=== PATIENT | female | born 1940 | race African-American/Black ===

== ENCOUNTER 2020-09-23 14:20 | Inpatient (IN) | payer OTHER ==
[~2020-09-23] VITALS: Ht 167.6 cm; Wt 71.2 kg
--- NOTE | 2020-09-23 14:20 | NUR ---
[facility] 82 [facility] C/O LOW 02 SAT AT 76%, PT IS AAOX2, NOTED RESPIRATORY DISTRESS, HOOKED TO 02 AT 15LPM VIA NB, HOOKED TO MEN'S SWIM COACH, KEPT RESTED AND COMFORTABLE. WILL CONTINUE TO MONITOR.
--- NOTE | 2020-09-23 14:36 | NUR ---
SEEN AND EXAMINED BY .
--- NOTE | 2020-09-23 14:40 | NUR ---
IV LINE ESTABLISHED BLOOD DRAWN AND SENT TO LAB.
[2020-09-23 15:03] LABS: BASOPHILS % (AUTO) 0.1 % (0.0-2.0); EOSINOPHILS % (AUTO) 0.1 % (0.0-6.0); HEMATOCRIT 30 % (33-45); HEMOGLOBIN 9.8 g/dL (11.5-14.8); LYMPHOCYTES # (AUTO) 0.4 /CMM (0.8-4.8); LYMPHOCYTES % (AUTO) 9.6 % (20.0-44.0); MEAN CORPUSCULAR HGB CONC 32 g/dl (31.0-36.0); MEAN CORPUSCULAR VOLUME 89 fL (82-100); MONOCYTES # (AUTO) 0.4 /CMM (0.1-1.30); MONOCYTES % (AUTO) 9.6 % (2.0-12.0); NEUTROPHILS # (AUTO) 3.8 /CMM (1.8-8.9); NEUTROPHILS % (AUTO) 80.6 % (43.0-81.0); PLATELET COUNT (AUTO) 134 /CMM (150-450); RED BLOOD CELL COUNT(AUTO) 3.41 MIL/uL (4.0-5.2); WHITE BLOOD COUNT (AUTO) 4.7 K/uL (4.3-11.0)
--- NOTE | 2020-09-23 15:10 | NUR ---
covid swab and urine collected. sent to lab
[2020-09-23 15:18] LABS: ALANINE AMINOTRANSFERASE 37 U/L (12-78); ALBUMIN 2.7 g/dL (3.4-5.0); ALKALINE PHOSPHATASE 65 U/L (46-116); ASPARTATE AMINOTRANSFERASE 193 U/L (15-37); BILIRUBIN,DIRECT 0.1 mg/dL (0.0-0.2); BILIRUBIN,TOTAL 0.5 mg/dL (0.2-1.0); CALCIUM, SERUM 8.3 mg/dL (8.5-10.1); CARBON DIOXIDE 27 mmol/L (21-32); CHLORIDE 107 mmol/L (98-107); GLUCOSE 150 mg/dL (74-106); POTASSIUM 3.5 mmol/L (3.5-5.1); SODIUM SERUM 142 mmol/L (136-145); TOTAL PROTEIN, SERUM 6.4 g/dL (6.4-8.2); UREA NITROGEN, BLOOD 14 mg/dL (7-18)
--- NOTE | 2020-09-23 15:26 | NUR ---
LAB CALLED LACTIC ACID IS 2.3
[2020-09-23] MEDS ORDERED: VANCOMYCIN 1 GM in IV D5W 250 ML IV ONE (15:30)
[2020-09-23] MEDS ORDERED: DEXAMETHASONE SOD PHOSPHATE 10 MG/ML VIAL IV ONE (15:30)
[2020-09-23] MEDS ORDERED: CEFEPIME 1 GM in IV D5W 50 ML IV ONE (15:30)
[2020-09-23] MEDS ORDERED: DEXAMETHASONE SOD PHOSPHATE 10 MG/ML VIAL ONE (15:51)
[2020-09-23 16:02] LABS: ABG BASE EXCESS 0.4 mmol/L; ABG OXYGEN SATURATION 98.1 % (92.0-98.5); ABG PCO2 36.9 mmHg (35.0-45.0); ABG PH 7.439 (7.350-7.450); ABG PO2 118.1 mmHg (75.0-100.0); COHb 0.6 % (0.5-1.5); MetHb 0.1 % (0.0-1.5); O2Hb 97.4 % (94.0-97.0); SITE, ABG Right Radial; VENT MODE, BG NRB 15L
[2020-09-23 16:11] LABS: D-DIMER 0.62 mg/L(FEU (0.17-0.50)
[2020-09-23 16:15] LABS: BILIRUBIN,URINE NEGATIVE (NEGATIVE); COLOR,URINE YELLOW (YELLOW); PROTEIN,URINE 2+ mg/dl (NEGATIVE); UGLUCOSE NEGATIVE (NEGATIVE)
[2020-09-23 16:16] LABS: LEUKOCYTE ESTERASE ,URINE NEGATIVE (NEGATIVE); NITRITE, URINE NEGATIVE (NEGATIVE)
[2020-09-23] MEDS ORDERED: IV NS 0.9% 1,897.6 ML IV ONE (16:30)
--- NOTE | 2020-09-23 16:38 | NUR ---
received a call from the lab regarding covid 19 reuslt "positive".
--- NOTE | 2020-09-23 16:38 | NUR ---
CALLED [facility] [phone] WILL CALL US BACK.
[2020-09-23 16:58] LABS: BACTERIA,URINE Few /HPF (None Seen); COARSE GRANULAR CASTS,URINE Few /LPF (None Seen); RBC,URINE 0-2 /HPF (0-2); SQUAMOUS EPITHELIAL CELL,UR Few /HPF (None Seen); WBC,URINE 0-2 /HPF (0-3)
[2020-09-23] MEDS ORDERED: ESCI10TA PO (17:30)
[2020-09-23] MEDS ORDERED: ATOR40TA PO (17:30)
[2020-09-23] MEDS ORDERED: LISI1TAB29 PO (17:30)
[2020-09-23] MEDS ORDERED: TRIA80OI TP (17:30)
--- NOTE | 2020-09-23 17:30 | NUR ---
pt placed on hiflow o2 per orders
[2020-09-23 17:52] LABS: CREATINE KINASE, TOTAL 251 U/L (26-192); FERRITIN 136 ng/mL (8-388)
--- NOTE | 2020-09-23 18:14 | NUR ---
RT PA02 ON BLOOD GAS GRREATER THAN 100, ON NRB, PT ON RESP DISTRESS REMOVING NRB PLACED ON VAPO HIGH FLOW WITHOUT COMPRESSOR CANNOT TITRATED FI02 Addendum: 09/23/20 at 1816 by CABRERA LOUIS RT Amended: Links added.
--- NOTE | 2020-09-23 18:28 | NUR ---
JACK FROM [facility] UPDATED WITH INPATIENT ORDERS
[2020-09-23] MEDS ORDERED: MAG HYDROX/AL HYDROX/SIMETH 30 ML UDC PO PRN (18:30)
[2020-09-23] MEDS ORDERED: ZOLPIDEM TARTRATE 5 MG TABLET PO PRN (18:30)
[2020-09-23] MEDS ORDERED: ACETAMINOPHEN 325 MG TABLET PO PRN (18:30)
[2020-09-23] MEDS ORDERED: Z GUARD REMEDY 2 OZ OINT TP PRN (18:30)
[2020-09-23] MEDS ORDERED: ONDANSETRON HCL/PF 4 MG/2 ML VIAL IVP PRN (18:30)
[2020-09-23] MEDS ORDERED: HYDROCODONE/APAP 5/325MG TABLET PO PRN (18:30)
[2020-09-23] MEDS ORDERED: MAGNESIUM HYDROXIDE 30 ML UDC PO PRN (18:30)
[2020-09-23 18:32] LABS: C-REACTIVE PROTEIN 22.6 mg/dL (0.0-0.9)
--- NOTE | 2020-09-23 18:39 | NUR ---
rd suh (son) [phone]
[2020-09-23] MEDS: APIXABAN 5 MG TABLET PO SCH (19:06)
[2020-09-23] MEDS ORDERED: REMDESIVIR (CHARGED) 200 MG, *LOADING DOSE 1 EA in IV NS 0.9% 210 ML IV ONE (20:00)
[2020-09-23] MEDS: CEFTRIAXONE 1 G in IV D5W 50 ML IV SCH (20:19)
--- NOTE | 2020-09-23 20:38 | NUR ---
tele bed 200
[2020-09-23 21:03] VITALS: BP_SYST 142; BP_SYST 168; BP_DIAS 68; BP_DIAS 82
--- NOTE | 2020-09-23 21:04 | NUR ---
PT ARRIVED FROM ER, AWAKE, A/O X2, WITH PERIODS OF CONFUSION. NO S/S OF DISTRESS NOTED. ON HIGH FLOW O2 AT40L AND 100% FIO2 SATING 95%. NO COMPLAIN OF PAIN. CALL LIGHT WITHIN REACH. BED ALARM ON. BED IN LOWEST AND LOCKED POSITION. HOB ELEVATED.
--- NOTE | 2020-09-23 21:12 | NUR ---
pt transported to 2nd floor
[2020-09-23 21:40] VITALS: BP 168/68
[2020-09-23] MEDS: DOXYCYCLINE HYCLATE (100 MG) 100 MG TABLET PO SCH (22:19)
[2020-09-24] VITALS: BP 142/82
--- NOTE | 2020-09-24 03:12 | NUR ---
airplane patrol pilot notes Went to Nursing Bankruptcy Law Specialist Coni to put Pt's belonging in the safe. Pt's belonging is in the safe. Primary nurse Joanna is informed and notified. pt's belonging tag is in pt's chart.
--- NOTE | 2020-09-24 03:30 | NUR ---
PT PULLED HER IV OUT. REINSERTED BY AURORA KOVACS ON THE RIGHT WRIST G22.
[2020-09-24 04:00] VITALS: BP 158/99
[2020-09-24 06:45] LABS: BASOPHILS % (AUTO) 0.2 % (0.0-2.0); HEMATOCRIT 32 % (33-45); HEMOGLOBIN 10.5 g/dL (11.5-14.8); LYMPHOCYTES # (AUTO) 0.4 /CMM (0.8-4.8); LYMPHOCYTES % (AUTO) 6.1 % (20.0-44.0); MEAN CORPUSCULAR HGB CONC 33 g/dl (31.0-36.0); MEAN CORPUSCULAR VOLUME 88 fL (82-100); MONOCYTES # (AUTO) 0.5 /CMM (0.1-1.30); MONOCYTES % (AUTO) 7.1 % (2.0-12.0); NEUTROPHILS # (AUTO) 6.1 /CMM (1.8-8.9); NEUTROPHILS % (AUTO) 86.6 % (43.0-81.0); PLATELET COUNT (AUTO) 144 /CMM (150-450); RED BLOOD CELL COUNT(AUTO) 3.64 MIL/uL (4.0-5.2)
[2020-09-24 07:17] LABS: THYROID STIMULATING HORMONE 0.574 uIU/mL (0.358-3.74)
[2020-09-24 07:30] LABS: ALBUMIN 2.4 g/dL (3.4-5.0); BILIRUBIN,TOTAL 0.3 mg/dL (0.2-1.0); CALCIUM, SERUM 8.2 mg/dL (8.5-10.1); CREATININE 0.8 mg/dL (0.6-1.3); MAGNESIUM 1.9 mg/dL (1.8-2.4); PHOSPHORUS 2.8 mg/dL (2.5-4.9); POTASSIUM 4.3 mmol/L (3.5-5.1); TOTAL PROTEIN, SERUM 6.1 g/dL (6.4-8.2)
--- NOTE | 2020-09-24 07:30 | NUR ---
FICTION AND NONFICTION WRITER PROSE NOTES PATIENT RECEIVED IN BED RESTING, ALERT AND ORIENTED X 1-2. ON HIGH FLOW WITH NON-REBREATHER 15 LITERS. ON ASH CONVEYOR OPERATOR SR 86. IV ACCESS INTACT AND PATENT, ON RIGHT WRIST. SKIN WARM AND DRY TO TOUCH. PATIENT PRESENTING WITH NO PAIN OR DISCOMFORT AT THIS TIME. BILATERAL SOFT WRIST RESTRAINTS IN PLACE, WITH ADEQUATE SKIN CIRCULATION NOTED, Q15 MIN VISUAL CHECKS. SAFETY PRECAUTIONS IMPLEMENTED WITH BED LOCKED, BILATERAL SIDE RAILS UP, BED ALARM ON, HOB ELEVATED, BED IN THE LOWEST POSITION, AND CALL LIGHT WITHIN EASY REACH OF THE PATIENT. WILL CONTINUE TO MONITOR PATIENT.
[2020-09-24 08:00] VITALS: BP 147/86
--- NOTE | 2020-09-24 08:00 | NUR ---
LANDSCAPE CONTRACTOR NOTES INFORMED DR GUAMAN LAB KANDIS CALLED AND INFORMED [facility] CRITICAL RESULTS OF 6.4, NO NEW ORDERS MADE A THIS TIME, WILL CONTINUE TO MONITOR PATIENT.
[2020-09-24 08:50] LABS: ALBUMIN 2.4 g/dL (3.4-5.0); BILIRUBIN,DIRECT 0.2 mg/dL (0.0-0.2); BILIRUBIN,TOTAL 0.3 mg/dL (0.2-1.0); TOTAL PROTEIN, SERUM 6.2 g/dL (6.4-8.2)
[2020-09-24] MEDS: HYDROCHLOROTHIAZIDE 25 MG TABLET PO SCH (08:54)
[2020-09-24] MEDS: DOXYCYCLINE HYCLATE (100 MG) 100 MG TABLET PO SCH (08:54)
[2020-09-24] MEDS: ESCITALOPRAM OXALATE (10 MG) 10 MG TABLET PO SCH (08:54)
[2020-09-24] MEDS: PANTOPRAZOLE 40 MG TABLET.DR PO SCH (08:54)
[2020-09-24] MEDS: ATORVASTATIN 40 MG TABLET PO SCH (08:55)
[2020-09-24] MEDS: LISINOPRIL (20MG) 20 MG TABLET PO SCH (08:55)
[2020-09-24] MEDS: APIXABAN 5 MG TABLET PO SCH ×2 (08:55→17:22)
[2020-09-24] MEDS: DEXAMETHASONE SOD PHOSPHATE 10 MG/ML VIAL IV SCH (08:56)
--- NOTE | 2020-09-24 10:30 | NUR ---
per AURORA Escalante, pt is unstable, please call Radiology when patient is ready for CT scan ext [phone]
[2020-09-24] MEDS ORDERED: DEXTROSE 50%-WATER 50 ML DISP.SYRIN IV PRN (11:00)
[2020-09-24 11:22] LABS: ABG BASE EXCESS 0.4 mmol/L; ABG OXYGEN SATURATION 94.3 % (92.0-98.5); ABG PCO2 38.5 mmHg (35.0-45.0); ABG PH 7.425 (7.350-7.450); ABG PO2 72.7 mmHg (75.0-100.0); AaDO2 601.8 mmHg; COHb 0.4 % (0.5-1.5); MetHb 0.1 % (0.0-1.5); O2Hb 93.8 % (94.0-97.0); SITE, ABG Left Radial; VENT MODE, BG HFNC 60L 100% +NRB
[2020-09-24 12:00] VITALS: BP 144/94
[2020-09-24] MEDS: BLOOD SUGAR DIAGNOSTIC 1 EACH STRIP IN SCH ×3 (12:19→21:00)
--- NOTE | 2020-09-24 13:55 | NUR ---
BASEBALL PITCHER NOTES INFORMED DR GUAMAN, BLOOD CULTURE RESULTS, NO NEW ORDERS AT THIS TIME. WILL CONTINUE TO MONITOR PATIENT.
[2020-09-24 15:32] LABS: C-REACTIVE PROTEIN 66.5 mg/dL (0.0-0.9)
[2020-09-24 16:00] VITALS: BP 161/97
[2020-09-24] MEDS: INSULIN REGULAR, HUMAN 100 UNIT/ML 3 ML VIAL SQ PRN ×2 (17:21→21:09)
[2020-09-24] MEDS: AZITHROMYCIN 250 MG TABLET PO SCH (18:33)
[2020-09-24] MEDS: CEFTRIAXONE 1 G in IV D5W 50 ML IV SCH (18:33)
--- NOTE | 2020-09-24 19:30 | NUR ---
OPERATIONS BOARDMAN OPENING NOTE RECEIVED PATIENT IN BED. A/OX1-1, ON OXYGEN VIA HIGH FLOW THROUGH NASAL CANNULA AT 40L/MIN WELL 15L NONREBREATHER. NO S/S SOB NOTED, NO S/S PAIN NOTED. EXTERNAL TELE MONITOR READS SINUS RHYTHM HR 78. IN NO APPARENT DISTRESS. IV ACCESS IN RIGHT WRIST @2 PATENT AND SALINE LOCKED. BED IS LOW AND LOCKED , HOB ELEVATED IN SEMI FOWLERS, SIDE RIALS UP X3, CALL LIGHT WITHIN REACH, WILL CONTINUE TO MONITOR THROUGHOUT SHIFT. Addendum: 09/25/20 at 0800 by THALIA TAYLOR RN PATIENT HAS BILATERAL SOFT WRIST RESTRAINTS, NO REDNESS NOTED, GOOD CAP REFILL.
--- NOTE | 2020-09-24 19:34 | NUR ---
HANG GLIDING INSTRUCTOR NOTES PATIENT IN BED RESTING, ALERT AND ORIENTED X 1-2. ON HIGH FLOW WITH NON-REBREATHER 15 LITERS. ON BOILER INSTALLER SR. IV ACCESS INTACT AND PATENT, ON RIGHT WRIST. SKIN KEPT CLEAN, WARM AND DRY TO TOUCH. PATIENT PRESENTING WITH NO PAIN OR DISCOMFORT AT THIS TIME. BILATERAL SOFT WRIST RESTRAINTS IN PLACE, WITH ADEQUATE SKIN CIRCULATION NOTED, Q15 MIN VISUAL CHECKS. MET ALL OF PATIENT'S NEEDS. SAFETY PRECAUTIONS IMPLEMENTED WITH BED LOCKED, BILATERAL SIDE RAILS UP, BED ALARM ON, HOB ELEVATED, BED IN THE LOWEST POSITION, AND CALL LIGHT WITHIN EASY REACH OF THE PATIENT. WILL ENDORSE PLAN OF CARE TO UPCOMING RN.
[2020-09-24 20:00] VITALS: BP 137/80
--- NOTE | 2020-09-24 20:30 | NUR ---
POWDER MONKEY NOTE OBTIANED VERBAL CONSENT FOR TRANSFUSION OF BLOOD PRODUCTS, EXPLAINING SPECIFICALLY FOR CONVALESCENT PLASMA FROM SON MARK PARSONS VIA TELEPHONE AT [phone]. RN CANDI MURRAY WITNESS AND COSIGNED THE APPROPRIATE DOCUMENTATION FOR CONSENT. PAPERS PLACED IN CHART. LAB ALSO HAS A COPY.
[2020-09-24] MEDS: REMDESIVIR (CHARGED) 100 MG in IV NS 0.9% 100 ML IV SCH (20:57)
[2020-09-25] VITALS (9 sets, daily range): BP systolic 123–147; BP diastolic 65–87
[2020-09-25] MEDS: BLOOD SUGAR DIAGNOSTIC 1 EACH STRIP IN SCH ×4 (06:49→22:16)
[2020-09-25 07:10] LABS: HEMATOCRIT 30 % (33-45); HEMOGLOBIN 9.8 g/dL (11.5-14.8); LYMPHOCYTES # (AUTO) 0.6 /CMM (0.8-4.8); LYMPHOCYTES % (AUTO) 8.8 % (20.0-44.0); MEAN CORPUSCULAR HGB CONC 33 g/dl (31.0-36.0); MEAN CORPUSCULAR VOLUME 88 fL (82-100); MONOCYTES # (AUTO) 1.1 /CMM (0.1-1.30); MONOCYTES % (AUTO) 14.5 % (2.0-12.0); NEUTROPHILS # (AUTO) 5.6 /CMM (1.8-8.9); NEUTROPHILS % (AUTO) 76.7 % (43.0-81.0); PLATELET COUNT (AUTO) 166 /CMM (150-450); RED BLOOD CELL COUNT(AUTO) 3.42 MIL/uL (4.0-5.2); WHITE BLOOD COUNT (AUTO) 7.3 K/uL (4.3-11.0)
--- NOTE | 2020-09-25 07:30 | NUR ---
RN OPENING NOTES RECEIVED PATIENT RESTING IN BED. AWAKE, ALERT AND ORIENTED X 1-2. ABLE TO MAKE NEEDS KNOWN. NO COMPLAINTS OF PAIN THIS AM. IV ACCESS TO RIGHT WRIST INTACT AND PATENT. CONTINUES ON O2 HIGH FLOW 40L. NO S/S RESPIRATORY DISTRESS NOTED. WILL CONTINUE TO MONITOR.
--- NOTE | 2020-09-25 07:30 | NUR ---
HIGH SCHOOL BAND TEACHER OPENING NOTE PATIENT RESTING IN BED. A/OX1-1. REMAINS ON OXYGEN VIA 40L HIGH FLOW AND 15L NRB. NO RESP DISTRESS. NO PAIN. TELE MONITOR READS SINUS RHYTHM. NO DISTRESS. IV ACCESS MAINTAINED IN RIGHT WRIST #22. BED REMAINS LOW AND LOCKED , HOB ELEVATED IN SEMI FOWLERS, SIDE RIALS UP X3, CALL LIGHT WITHIN REACH, WILL ENDORSE TO NEXT SHIFT. Addendum: 09/25/20 at 0801 by THALIA TAYLOR RN THIS IS A CLOSING NOTE BILATERAL SOFT WRIST ARE STILL MAINTAINED, NO INJURIES NOTED.
[2020-09-25 07:31] LABS: ALBUMIN 2.3 g/dL (3.4-5.0); BILIRUBIN,DIRECT 0.2 mg/dL (0.0-0.2); BILIRUBIN,TOTAL 0.4 mg/dL (0.2-1.0); CALCIUM, SERUM 8.4 mg/dL (8.5-10.1); CREATININE 0.8 mg/dL (0.6-1.3); MAGNESIUM 1.9 mg/dL (1.8-2.4); PHOSPHORUS 2.8 mg/dL (2.5-4.9); POTASSIUM 3.6 mmol/L (3.5-5.1); TOTAL PROTEIN, SERUM 5.8 g/dL (6.4-8.2)
[2020-09-25] MEDS: HYDROCHLOROTHIAZIDE 25 MG TABLET PO SCH (08:20)
[2020-09-25] MEDS: LISINOPRIL (20MG) 20 MG TABLET PO SCH (08:20)
[2020-09-25] MEDS: ESCITALOPRAM OXALATE (10 MG) 10 MG TABLET PO SCH (08:21)
[2020-09-25] MEDS: PANTOPRAZOLE 40 MG TABLET.DR PO SCH (08:21)
[2020-09-25] MEDS: DEXAMETHASONE SOD PHOSPHATE 10 MG/ML VIAL IV SCH (08:21)
[2020-09-25] MEDS: ATORVASTATIN 40 MG TABLET PO SCH (08:21)
[2020-09-25] MEDS: APIXABAN 5 MG TABLET PO SCH ×2 (08:23→16:43)
[2020-09-25] MEDS: INSULIN REGULAR, HUMAN 100 UNIT/ML 3 ML VIAL SQ PRN ×3 (12:03→22:24)
[2020-09-25] MEDS: VANCOMYCIN 1.25 GM in IV D5W 250 ML IV SCH (12:23)
[2020-09-25] MEDS: AZITHROMYCIN 250 MG TABLET PO SCH (18:48)
--- NOTE | 2020-09-25 18:51 | NUR ---
RN CLOSING NOTE PATIENT CURRENTLY RESTING IN BED. A&O X 1-2. ABLE TO MAKE NEEDS KNOWN. NO COMPLAINTS OF PAIN THIS SHIFT. CONTINUES ON HFNC 40L AND NRB 15L WITH O2 SATS 100%. NO S/S OF RESPIRATORY DISTRESS. RECEIVED CONVALESCENT PLASMA WITH NO S/S OF REACTION NOTED. IV #22 TO RIGHT WRIST INTACT AND PATENT. CALL LIGHT WITHIN REACH. ASPIRATION, FALL AND SAFETY PRECAUTIONS MAINTAINED.
--- NOTE | 2020-09-25 19:30 | NUR ---
SOFT DRINK POWDER MIXER OPENING NOTES PATIENT IN BED; A/O X1-2 WITH CONFUSION; ABLE TO MAKE NEEDS KNOWN. EXTERNAL CARDIAC MONITORING READS SR HR AT 86. ON HIGHFLOW 40LPM AND NRB 15LPM, TOLERATING WELL WITH NO SOB, COUGHING NOTED. NO S/S OF PAIN OR DISCOMFORT AT THIS TIME. IV RESTRAINT ON L WRIST WITH NO SKIN BREAKDOWN. IV #22 ON R WRIST; PATENT AND INTACT. SAFETY MEASURES IN PLACE: BED IN LOWEST LOCK POSITION, SIDE RAILS UP X2, CALL LIGHT WITHIN REACH, BED ALARMS ON. WILL CONTINUE TO MONITOR.
[2020-09-25] MEDS: CEFTRIAXONE 1 G in IV D5W 50 ML IV SCH (20:12)
[2020-09-25] MEDS: REMDESIVIR (CHARGED) 100 MG in IV NS 0.9% 100 ML IV SCH (20:44)
[2020-09-26] VITALS (8 sets, daily range): BP systolic 133–151; BP diastolic 75–94
[2020-09-26 05:54] LABS: BASOPHILS % (AUTO) 0.1 % (0.0-2.0); HEMATOCRIT 29 % (33-45); HEMOGLOBIN 9.6 g/dL (11.5-14.8); LYMPHOCYTES # (AUTO) 0.8 /CMM (0.8-4.8); LYMPHOCYTES % (AUTO) 9.3 % (20.0-44.0); MEAN CORPUSCULAR HGB CONC 33 g/dl (31.0-36.0); MEAN CORPUSCULAR VOLUME 87 fL (82-100); MONOCYTES # (AUTO) 1.2 /CMM (0.1-1.30); MONOCYTES % (AUTO) 14.6 % (2.0-12.0); NEUTROPHILS # (AUTO) 6.4 /CMM (1.8-8.9); PLATELET COUNT (AUTO) 181 /CMM (150-450); RED BLOOD CELL COUNT(AUTO) 3.38 MIL/uL (4.0-5.2); WHITE BLOOD COUNT (AUTO) 8.5 K/uL (4.3-11.0)
[2020-09-26] MEDS: VANCOMYCIN 1.25 GM in IV D5W 250 ML IV SCH ×2 (06:05→23:54)
[2020-09-26 06:26] LABS: ALBUMIN 2.4 g/dL (3.4-5.0); BILIRUBIN,DIRECT 0.2 mg/dL (0.0-0.2); BILIRUBIN,TOTAL 0.6 mg/dL (0.2-1.0); CALCIUM, SERUM 8.6 mg/dL (8.5-10.1); CREATININE 0.7 mg/dL (0.6-1.3); POTASSIUM 3.4 mmol/L (3.5-5.1); TOTAL PROTEIN, SERUM 5.9 g/dL (6.4-8.2)
[2020-09-26] MEDS: BLOOD SUGAR DIAGNOSTIC 1 EACH STRIP IN SCH ×4 (06:47→23:30)
[2020-09-26] MEDS: PANTOPRAZOLE 40 MG TABLET.DR PO SCH (06:47)
[2020-09-26] MEDS: INSULIN REGULAR, HUMAN 100 UNIT/ML 3 ML VIAL SQ PRN ×3 (06:48→23:53)
--- NOTE | 2020-09-26 07:36 | NUR ---
GLASS ETCHER CLOSING NOTES PATIENT IN BED; A/O X1-2 WITH CONFUSION; ABLE TO MAKE NEEDS KNOWN. EXTERNAL CARDIAC MONITORING READS SR. ON HIGHFLOW 60LPM AND NRB 15LPM, TOLERATING WELL WITH NO SOB NOTED. NO S/S OF PAIN OR DISCOMFORT AT THIS TIME. ALEXANDREA MIDLINE #18 PATENT AND INTACT. IV #22 ON LFA; PATENT AND INTACT. SOFT RESTRAIN ON L WRIST; NO SKIN BREAKDOWN NOTED. SAFETY MEASURES IN PLACE: BED IN LOWEST LOCK POSITION, SIDE RAILS UP X2, CALL LIGHT WITHIN REACH, BED ALARMS ON. ENDORSE PLAN OF CARE TO ONCOMING MORNING RN. Addendum: 09/26/20 at 0739 by FRANK MARRERO RN HIGH FLOW 40LPM
--- NOTE | 2020-09-26 07:49 | NUR ---
DE IONIZER OPERATOR OPENING NOTES RECEIVED PATIENT IN BED, AWAKE, A/O X1. PATIENT ON HIGHFLOW 60LPM AND NRB 15LPM, TOLERATING WELL WITH NO SOB NOTED. NO S/S OF PAIN OR VERBALIZATION OF PAIN AT THIS TIME. ALEXANDREA MIDLINE #18 PATENT AND INTACT AND IV #22 ON LFA; PATENT AND INTACT. SOFT RESTRAIN ON L WRIST. SAFETY PRECAUTIONS IN PLACE; BED IN LOW POSITION AND LOCKED; RAILS UP X2, CALL LIGHT WITHIN REACH. WILL CONTINUE TO MONITOR PATIENT.
[2020-09-26] MEDS: DEXAMETHASONE SOD PHOSPHATE 10 MG/ML VIAL IV SCH (10:01)
[2020-09-26] MEDS: ESCITALOPRAM OXALATE (10 MG) 10 MG TABLET PO SCH (10:02)
[2020-09-26] MEDS: HYDROCHLOROTHIAZIDE 25 MG TABLET PO SCH (10:03)
[2020-09-26] MEDS: ATORVASTATIN 40 MG TABLET PO SCH (10:04)
[2020-09-26] MEDS: LISINOPRIL (20MG) 20 MG TABLET PO SCH (10:04)
[2020-09-26] MEDS: APIXABAN 5 MG TABLET PO SCH ×2 (10:05→17:37)
[2020-09-26] MEDS ORDERED: POTASSIUM CHLORIDE 20 MEQ TAB.PRT.SR PO SCH (11:00)
[2020-09-26 12:55] LABS: C-REACTIVE PROTEIN 8.9 mg/dL (0.0-0.9)
[2020-09-26] MEDS: AZITHROMYCIN 250 MG TABLET PO SCH (17:35)
--- NOTE | 2020-09-26 18:39 | NUR ---
CUSTODIAL FOREMAN CLOSING NOTES PATIENT REMAINS IN BED, AWAKE, A/O X2. PATIENT ON HIGH-FLOW 60LPM; TOLERATING WELL WITH NO SOB NOTED. NO COMPLAINS OF PAIN DURING THE DAY. ALEXANDREA MIDLINE #18 PATENT AND INTACT AND IV #22 ON LFA; PATENT AND INTACT. ALL NEEDS ATTENDED THROUGHOUT THE DAY. SAFETY PRECAUTIONS IN PLACE; BED IN LOW POSITION AND LOCKED; RAILS UP X2, CALL LIGHT WITHIN REACH. WILL ENDORSE TO TUNNEL HEADING SUPERVISOR NURSE.
--- NOTE | 2020-09-26 19:26 | NUR ---
PEST CONTROLLER ASSISTANT OPENING NOTES PATIENT IN BED; A/O X1-2 WITH CONFUSION; ABLE TO MAKE NEEDS KNOWN. EXTERNAL CARDIAC MONITORING READS SR HR AT 70'S-80'S. ON HIGHFLOW 40LPM, TOLERATING WELL WITH NO SOB, COUGHING NOTED. NO S/S OF PAIN OR DISCOMFORT AT THIS TIME. IV RESTRAINT ON L WRIST WITH NO SKIN BREAKDOWN. IV #22 ON RFA; PATENT AND INTACT. SAFETY MEASURES IN PLACE: BED IN LOWEST LOCK POSITION, SIDE RAILS UP X2, CALL LIGHT WITHIN REACH, BED ALARMS ON. WILL CONTINUE TO MONITOR.
[2020-09-26] MEDS: CEFTRIAXONE 1 G in IV D5W 50 ML IV SCH (20:03)
[2020-09-26] MEDS: REMDESIVIR (CHARGED) 100 MG in IV NS 0.9% 100 ML IV SCH (20:55)
[2020-09-27] VITALS (7 sets, daily range): BP systolic 105–140; BP diastolic 57–80
--- NOTE | 2020-09-27 06:10 | NUR ---
E TAILER: LABS PATIENT IS CONFUSED AT AGITATED. REFUSED ADL'S. PATIENT REFUSED TANK COOPER TO DRAW BLOOD. TOLD TANK COOPER MM TO TRY AGAIN LATER. WILL ENDORSE TO ONCOMING NURSE.
--- NOTE | 2020-09-27 07:13 | NUR ---
MEDICAL TERMINOLOGIST CLOSING NOTES PATIENT IN BED; A/O X1-2 WITH CONFUSION; ABLE TO MAKE NEEDS KNOWN. EXTERNAL CARDIAC MONITORING READS SR AT 67. ON 02 HIGHFLOW 40LPM SATTING AT 95%; TOLERATING WELL WITH NO SOB NOTED. IV #22 ON RFA. SAFETY MEASURES IN PLACE: BED IN LOWEST LOCK POSITION, SIDE RAILS UP X2, CALL LIGHT WITHIN REACH, BED ALARMS ON. ENDORSE PLAN OF CARE TO ONCOMING MORNING RN.
[2020-09-27] MEDS: BLOOD SUGAR DIAGNOSTIC 1 EACH STRIP IN SCH ×4 (07:36→21:54)
[2020-09-27] MEDS: PANTOPRAZOLE 40 MG TABLET.DR PO SCH (07:36)
[2020-09-27 08:31] LABS: ABG OXYGEN SATURATION 99.3 % (92.0-98.5); ABG PCO2 46.7 mmHg (35.0-45.0); ABG PH 7.451 (7.350-7.450); ABG PO2 204.9 mmHg (75.0-100.0); AaDO2 461.4 mmHg; COHb 0.1 % (0.5-1.5); MetHb 0.2 % (0.0-1.5); SITE, ABG Left Radial; VENT MODE, BG Vapotherm 40LPM 100%
[2020-09-27 09:41] LABS: EOSINOPHILS % (AUTO) 0.4 % (0.0-6.0); HEMATOCRIT 31 % (33-45); HEMOGLOBIN 10.1 g/dL (11.5-14.8); LYMPHOCYTES # (AUTO) 1.3 /CMM (0.8-4.8); LYMPHOCYTES % (AUTO) 15.6 % (20.0-44.0); MEAN CORPUSCULAR HGB CONC 33 g/dl (31.0-36.0); MEAN CORPUSCULAR VOLUME 88 fL (82-100); MONOCYTES # (AUTO) 1.1 /CMM (0.1-1.30); PLATELET COUNT (AUTO) 199 /CMM (150-450); RED BLOOD CELL COUNT(AUTO) 3.54 MIL/uL (4.0-5.2); WHITE BLOOD COUNT (AUTO) 8.4 K/uL (4.3-11.0)
[2020-09-27 10:00] LABS: ALBUMIN 2.3 g/dL (3.4-5.0); BILIRUBIN,DIRECT 0.2 mg/dL (0.0-0.2); BILIRUBIN,TOTAL 0.5 mg/dL (0.2-1.0); CALCIUM, SERUM 8.8 mg/dL (8.5-10.1); CREATININE 0.7 mg/dL (0.6-1.3); MAGNESIUM 1.6 mg/dL (1.8-2.4); PHOSPHORUS 2.7 mg/dL (2.5-4.9); POTASSIUM 3.1 mmol/L (3.5-5.1)
[2020-09-27] MEDS: ESCITALOPRAM OXALATE (10 MG) 10 MG TABLET PO SCH (10:01)
[2020-09-27] MEDS: HYDROCHLOROTHIAZIDE 25 MG TABLET PO SCH (10:01)
[2020-09-27] MEDS: ATORVASTATIN 40 MG TABLET PO SCH (10:01)
[2020-09-27] MEDS: LISINOPRIL (20MG) 20 MG TABLET PO SCH (10:02)
--- NOTE | 2020-09-27 10:30 | NUR ---
TELE/RN OPENING NOTE Received report from AURORA Stafford. Patient is in bed, A&O x 2, moans upon tactile and verbal stimulation. Breathing even and non-labored on 10 L via face mask (ordered by Dr. Hutchison), saturating at 97%. No respiratory or cardiac distress noted. On tele monitor, reading SR 80. IV access noted on R wrist #22g, patent and intact, and flushing well. Calix in place, draining yellow urine well. Bilateral soft wrist restraints off, patient has been compliant, circulation, skin, and sensation of both upper extremities are intact. Bed locked to its lowest position, side rails x 2 up, bed alarm on. Will continue with current medical management. Addendum: 09/27/20 at 2016 by GEORGIA MCNALLY RN CORRECTION NO SHENA
[2020-09-27] MEDS: APIXABAN 5 MG TABLET PO SCH ×2 (11:02→17:20)
[2020-09-27] MEDS: DEXAMETHASONE SOD PHOSPHATE 10 MG/ML VIAL IV SCH (11:02)
--- NOTE | 2020-09-27 12:00 | NUR ---
TELE/RN NOTE ORDERED ST EVAL AND SWALLOW EVAL FOR PATIENT SINCE PATIENT WAS REPORTED COUGHING ON CCHO REGULAR CONSISTENCY AND THIN LIQUIDS. ST ORDERED TO CHANGE DIET CONSISTENCY TO CCHO PUREED AND NECTAR THICKENED FLUIDS. ORDERS CARRIED OUT.
[2020-09-27 12:29] LABS: C-REACTIVE PROTEIN 10.5 mg/dL (0.0-0.9)
--- NOTE | 2020-09-27 17:00 | NUR ---
TELE/RN NOTE Patient refused vanco trough blood draw, educated patient regarding risks and benefits, insists on refusal. Notified pharmacy, states "still administer the dose, we'll reschedule the trough."
[2020-09-27] MEDS: INSULIN REGULAR, HUMAN 100 UNIT/ML 3 ML VIAL SQ PRN ×2 (17:21→21:55)
[2020-09-27] MEDS: AZITHROMYCIN 250 MG TABLET PO SCH (17:49)
[2020-09-27] MEDS: VANCOMYCIN 1.25 GM in IV D5W 250 ML IV SCH (17:51)
[2020-09-27] MEDS: CEFTRIAXONE 1 G in IV D5W 50 ML IV SCH (18:38)
--- NOTE | 2020-09-27 19:30 | NUR ---
TELE/RN CLOSING NOTE Patient is awake in bed, A&O x 2, moans upon tactile and verbal stimulation. All needs met and attended to. Breathing even and non-labored on 10 L via face mask. No respiratory or cardiac distress noted. On tele monitor, reading SR 83. IV access noted on R wrist #22g, patent and intact, and flushing well. Calix in place, draining yellow urine well. Bilateral soft wrist restraints still off, patient has been compliant, circulation, skin, and sensation of both upper extremities are intact. Fall precautions maintained. Will endorse to overnight caregiver nurse. Addendum: 09/27/20 at 2016 by GEORGIA MCNALLY RN CORRECTION NO SHENA
--- NOTE | 2020-09-27 20:11 | NUR ---
SANITATION LABORER OPENING NOTE Patient awake in bed, A/O x2, HOB elevated. Tele monitor reading sinus rhythm. Breathing even, mild labor, with face mask at 10 LPM, saturating at 95%. Skin warm, pink, dry, appropriate for ethnicity, intact. Patient is incontinent. Abdomen large, round, soft, non-distended. IV site right wrist 22g, saline locked. IV patent and intact, no signs of redness or infiltration. Patient is incontinent. Bed in low position, wheels locked, side rails up x2, call light within reach.
[2020-09-27] MEDS ORDERED: POTASSIUM CHLORIDE 20 MEQ TAB.PRT.SR PO ONE (20:30)
[2020-09-27] MEDS: Magnesium 1GM/D5W 100ML PREMIX 100 ML IV SCH ×2 (20:41→21:54)
[2020-09-28] VITALS: BP 103/60
[2020-09-28 01:25] VITALS: BP 103/60
[2020-09-28 04:00] VITALS: BP 119/77
--- NOTE | 2020-09-28 06:09 | NUR ---
HOP STRAINER CLOSING NOTE Patient asleep in bed, A/O x2, HOB elevated. Tele monitor reading sinus rhythm. Breathing even, mild labor, with face mask at 10 LPM, saturating at 99%. Patient is incontinent. IV site right wrist 22g, saline locked. IV patent and intact, no signs of redness or infiltration. All scheduled medications administered. All needs met. Bed in low position, wheels locked, side rails up x2, call light within reach. Will endorse to oncoming nurse
[2020-09-28] MEDS: PANTOPRAZOLE 40 MG TABLET.DR PO SCH (06:35)
[2020-09-28] MEDS: BLOOD SUGAR DIAGNOSTIC 1 EACH STRIP IN SCH ×4 (06:35→22:12)
[2020-09-28 07:02] LABS: BASOPHILS % (AUTO) 0.1 % (0.0-2.0); EOSINOPHILS % (AUTO) 0.6 % (0.0-6.0); HEMATOCRIT 31 % (33-45); LYMPHOCYTES # (AUTO) 1.4 /CMM (0.8-4.8); LYMPHOCYTES % (AUTO) 20.2 % (20.0-44.0); MEAN CORPUSCULAR HGB CONC 33 g/dl (31.0-36.0); MEAN CORPUSCULAR VOLUME 87 fL (82-100); MONOCYTES % (AUTO) 14.2 % (2.0-12.0); NEUTROPHILS # (AUTO) 4.5 /CMM (1.8-8.9); NEUTROPHILS % (AUTO) 64.9 % (43.0-81.0); PLATELET COUNT (AUTO) 202 /CMM (150-450); RED BLOOD CELL COUNT(AUTO) 3.52 MIL/uL (4.0-5.2); WHITE BLOOD COUNT (AUTO) 6.9 K/uL (4.3-11.0)
[2020-09-28 07:22] LABS: CALCIUM, SERUM 8.7 mg/dL (8.5-10.1); CREATININE 0.8 mg/dL (0.6-1.3); MAGNESIUM 2.5 mg/dL (1.8-2.4); PHOSPHORUS 3.1 mg/dL (2.5-4.9); POTASSIUM 3.6 mmol/L (3.5-5.1)
--- NOTE | 2020-09-28 07:36 | NUR ---
TELE/RN OPENING NOTES RECEIVED PATIENT ON BED. PATIENT IN NO APPARENT RESPIRATORY DISTRESS NOTED. NO SIGN AND SYMPTOM OF PAIN NOTED AT THIS TIME. TELE MONITOR READING SINUS RHYTHM 67 BPM. WILL CONTINUE TO MONITOR.
[2020-09-28] MEDS: HYDROCHLOROTHIAZIDE 25 MG TABLET PO SCH (09:00)
--- NOTE | 2020-09-28 09:00 | NUR ---
TELE/RN NOTES BP 119/79 P 79 HYDRODIURIL 25MG 1 TAB P.O. AND LISINOPRIL 20MG 1 TAB P.O. WAS WITH HELD. WILL CONTINUE TO MONITOR.
[2020-09-28] MEDS: DEXAMETHASONE SOD PHOSPHATE 10 MG/ML VIAL IV SCH (09:40)
[2020-09-28] MEDS: ATORVASTATIN 40 MG TABLET PO SCH (09:41)
[2020-09-28] MEDS: LISINOPRIL (20MG) 20 MG TABLET PO SCH (09:42)
[2020-09-28] MEDS: ESCITALOPRAM OXALATE (10 MG) 10 MG TABLET PO SCH (09:42)
--- NOTE | 2020-09-28 10:04 | NUR ---
TELE/RN NOTES DR. RUBIO ORDER 6L OXYGEN VIA NASAL CANNULA THEN TITRATE OXYGEN IF SAO2 90%-100%. NOTED AND CARRIED OUT.
[2020-09-28] MEDS: APIXABAN 5 MG TABLET PO SCH ×2 (10:09→17:16)
[2020-09-28 16:09] LABS: *HIV-1 RNA BY PCR <20 copies/mL (.)
[2020-09-28] MEDS: AZITHROMYCIN 250 MG TABLET PO SCH (17:36)
[2020-09-28] MEDS: INSULIN REGULAR, HUMAN 100 UNIT/ML 3 ML VIAL SQ PRN ×2 (17:38→22:17)
--- NOTE | 2020-09-28 19:06 | NUR ---
TELE/RN CLOSING NOTES PATIENT IS ON BED. PATIENT IS ON 6L OXYGEN VIA NASAL CANNULA SATURATION 99%. PATIENT IN NO APPARENT RESPIRATORY DISTRESS. NO SIGN AND SYMPTOM OF PAIN NOTED AT THIS TIME. TELE MONITOR READING SINUS RHYTHM 79 WITH PVC. SEEN AND EXAMINED BY MD WITH ORDERS MADE AND CARRIED OUT. ALL DUE MEDICATIONS WAS GIVE. WILL ENDORSED TO PLANNING FEEDER FOR MIKE.
--- NOTE | 2020-09-28 19:20 | NUR ---
customer service sales consultant opening notes Received Pt from morning nurse. Pt is resting in bed comfortably. Pt is alert and orientedX2. Respiration on 6 L NC. No SOB. No S/S of distress noted. IV site at R wrist# 22 is clean, intact, flushes well and SL. Tele monitor showed SR with PVC hr at 79 bpm. Bilateral soft wrist restraints are intact, skin is warm to touch and circulations check Q 2 hr. Safety precautions is maintained. Bed at low position, brakes locked, hob elevated, side rails upX2 and call light is within reach. Will continue to monitor.
[2020-09-28 20:00] VITALS: BP 115/72
[2020-09-28] MEDS: CEFTRIAXONE 1 G in IV D5W 50 ML IV SCH (20:21)
[2020-09-29] VITALS: BP 114/65
[2020-09-29 04:00] VITALS: BP 122/66
--- NOTE | 2020-09-29 06:50 | NUR ---
interlocking pavement installer closing notes Pt is resting in bed comfortably. Pt is alert and orientedX2. Respiration on 6 L NC with O2 sat is 99%. No SOB. No S/S of distress noted. IV site at R wrist# 22 is clean, intact, flushes well and SL. Tele monitor showed SR hr at 70 bpm. VS is stable. Afebrile. Routine meds were given as ordered. Kept Pt clean, dry and comfortable. All needs met and attended. Safety precautions is maintained. Bed at low position, brakes locked, hob elevated, side rails upX2 and call light is within reach. Will endorse to morning nurse for MIKE.
[2020-09-29] MEDS: INSULIN REGULAR, HUMAN 100 UNIT/ML 3 ML VIAL SQ PRN ×3 (07:07→17:19)
[2020-09-29] MEDS: BLOOD SUGAR DIAGNOSTIC 1 EACH STRIP IN SCH ×4 (07:07→22:56)
[2020-09-29 07:50] LABS: ALBUMIN 2.3 g/dL (3.4-5.0); BILIRUBIN,DIRECT 0.2 mg/dL (0.0-0.2); BILIRUBIN,TOTAL 0.4 mg/dL (0.2-1.0)
[2020-09-29] MEDS: PANTOPRAZOLE 40 MG TABLET.DR PO SCH (07:53)
--- NOTE | 2020-09-29 07:54 | NUR ---
TELE/RN OPENING NOTES RECEIVED PATIENT ON BED. PATIENT IS ON 6L OXYGEN VIA NASAL CANNULA. PATIENT IN NO APPARENT RESPIRATORY DISTRESS NOTED. NO SIGN AND SYMPTOM OF PAIN NOTED AT THIS TIME. TELE MONITOR READING SINUS RHYTHM 76 BPM. WILL CONTINUE TO MONITOR.
[2020-09-29 07:56] LABS: EOSINOPHILS % (AUTO) 0.8 % (0.0-6.0); HEMATOCRIT 32 % (33-45); HEMOGLOBIN 10.1 g/dL (11.5-14.8); LYMPHOCYTES % (AUTO) 15.7 % (20.0-44.0); MEAN CORPUSCULAR HGB CONC 32 g/dl (31.0-36.0); MEAN CORPUSCULAR VOLUME 87 fL (82-100); MONOCYTES # (AUTO) 0.9 /CMM (0.1-1.30); MONOCYTES % (AUTO) 14.4 % (2.0-12.0); NEUTROPHILS # (AUTO) 4.6 /CMM (1.8-8.9); NEUTROPHILS % (AUTO) 69.1 % (43.0-81.0); PLATELET COUNT (AUTO) 216 /CMM (150-450); RED BLOOD CELL COUNT(AUTO) 3.61 MIL/uL (4.0-5.2); WHITE BLOOD COUNT (AUTO) 6.6 K/uL (4.3-11.0)
[2020-09-29 08:00] VITALS: BP 110/64
[2020-09-29] MEDS: HYDROCHLOROTHIAZIDE 25 MG TABLET PO SCH (09:00)
[2020-09-29] MEDS: LISINOPRIL (20MG) 20 MG TABLET PO SCH (09:00)
[2020-09-29 09:24] LABS: CALCIUM, SERUM 8.8 mg/dL (8.5-10.1); CREATININE 0.7 mg/dL (0.6-1.3); MAGNESIUM 2.3 mg/dL (1.8-2.4); PHOSPHORUS 3.1 mg/dL (2.5-4.9); POTASSIUM 3.8 mmol/L (3.5-5.1)
[2020-09-29] MEDS: ATORVASTATIN 40 MG TABLET PO SCH (09:24)
[2020-09-29] MEDS: ESCITALOPRAM OXALATE (10 MG) 10 MG TABLET PO SCH (09:24)
[2020-09-29] MEDS: DEXAMETHASONE SOD PHOSPHATE 10 MG/ML VIAL IV SCH (09:24)
[2020-09-29] MEDS: APIXABAN 5 MG TABLET PO SCH ×2 (09:26→17:17)
--- NOTE | 2020-09-29 09:47 | NUR ---
TELE/RN NOTES DR. RUBIO ORDER 3L OXYGEN NOTED AND CARRIED OUT.
[2020-09-29 09:56] LABS: ABG BASE EXCESS 3.4 mmol/L; ABG OXYGEN SATURATION 97.6 % (92.0-98.5); ABG PCO2 36.7 mmHg (35.0-45.0); ABG PH 7.483 (7.350-7.450); ABG PO2 99.5 mmHg (75.0-100.0); AaDO2 215.7 mmHg; COHb 0.1 % (0.5-1.5); O2Hb 97.5 % (94.0-97.0); SITE, ABG Left Radial; VENT MODE, BG 6 LPM NC
--- NOTE | 2020-09-29 10:30 | NUR ---
TELE/RN NOTES PLACE PATIENT ON 3L OXYGEN VIA NASAL CANNULA SATURATION 94% TOLERATING WELL. NO SHORTNESS OF BREATH NOTED. WILL CONTINUE TO MONITOR.
[2020-09-29 18:50] VITALS: BP 140/84
--- NOTE | 2020-09-29 19:28 | NUR ---
TELE/RN CLOSING NOTES PATIENT IS ON BED. ALERT AND ORIENTED X2. PATIENT IS ON 3L OXYGEN VIA NASAL CANNULA SATURATION 92%. PATIENT IN NO APPARENT RESPIRATORY DISTRESS. NO SIGN AND SYMPTOM OF PAIN NOTED AT THIS TIME. TELE MONITOR READING SINUS RHYTHM 72 BPM WITH PVC PAC WAP. SEEN AND EXAMINED BY MD WITH ORDERS MADE AND CARRIED OUT. ALL DUE MEDICATIONS WAS GIVE. SAFETY PRECAUTIONS WAS IN PLACED. BED IN LOWEST POSITION AND LOCKED. SIDE RAILS UP X2. CALL LIGHT WITHIN REACH. WILL ENDORSED TO PRODUCTION DIRECTOR FOR MIKE.
--- NOTE | 2020-09-29 19:30 | NUR ---
TELE/RN OPENING NOTES RECEIVED PATIENT IN BED RESTING. PATIENT IS ALERT AND ORIENTED X 1-2. PATIENT HAS BILATERAL SOFT WRIST IN PLACE, EXTREMITY CIRCULATION IS GOOD. PATIENT BREATHING IS EVEN AND UNLABORED. NO SIGNS OF RESPIRATORY DISTRESS NOTED. PATIENT IN NO SIGNS OF DISTRESS. PATIENT HAS IV ACCESS ON RIGHT WRIST #22G SL. SAFETY MEASURES ARE IN PLACED, BED IS LOCKED AND PLACED IN THE LOWEST POSITION, SIDE RAILS UP X 3, CALL LIGHT WITHIN REACH. WILL CONTINUE TO MONITOR THROUGH OUT SHIFT.
[2020-09-29] MEDS: CEFTRIAXONE 1 G in IV D5W 50 ML IV SCH (19:42)
[2020-09-29 20:00] VITALS: BP 117/74
[2020-09-30] VITALS: BP 130/69
[2020-09-30 04:00] VITALS: BP 154/86
[2020-09-30 06:17] LABS: BASOPHILS % (AUTO) 0.1 % (0.0-2.0); EOSINOPHILS % (AUTO) 0.3 % (0.0-6.0); HEMATOCRIT 31 % (33-45); HEMOGLOBIN 9.9 g/dL (11.5-14.8); LYMPHOCYTES % (AUTO) 15.1 % (20.0-44.0); MEAN CORPUSCULAR HGB CONC 32 g/dl (31.0-36.0); MEAN CORPUSCULAR VOLUME 87 fL (82-100); MONOCYTES % (AUTO) 16.4 % (2.0-12.0); NEUTROPHILS # (AUTO) 4.4 /CMM (1.8-8.9); NEUTROPHILS % (AUTO) 68.1 % (43.0-81.0); PLATELET COUNT (AUTO) 226 /CMM (150-450); RED BLOOD CELL COUNT(AUTO) 3.52 MIL/uL (4.0-5.2); WHITE BLOOD COUNT (AUTO) 6.4 K/uL (4.3-11.0)
[2020-09-30] MEDS: BLOOD SUGAR DIAGNOSTIC 1 EACH STRIP IN SCH ×2 (06:29→12:02)
--- NOTE | 2020-09-30 06:30 | NUR ---
TELE/RN CLOSING NOTES PATIENT IN BED SLEEPING. PATIENT IS ALERT AND ORIENTED X 1-2. PATIENT HAS BILATERAL SOFT WRIST IN PLACE, EXTREMITY CIRCULATION IS GOOD. PATIENT BREATHING IS EVEN AND UNLABORED. TELE READING SR 66. NO SIGNS OF RESPIRATORY DISTRESS NOTED. PATIENT IN NO SIGNS OF DISTRESS. PATIENT HAS IV ACCESS ON RIGHT WRIST #22G SL. ALL NEEDS HAVE BEEN MET DURING SHIFT. SAFETY MEASURES ARE IN PLACE, BED IS LOCKED AND PLACED IN THE LOWEST POSITION, SIDE RAILS UP X 3, CALL LIGHT WITHIN REACH. WILL ENDORSE CARE TO DAY SHIFT NURSE.
[2020-09-30 07:12] LABS: CALCIUM, SERUM 8.8 mg/dL (8.5-10.1); CREATININE 0.8 mg/dL (0.6-1.3); POTASSIUM 3.7 mmol/L (3.5-5.1)
--- NOTE | 2020-09-30 07:30 | NUR ---
TELE/RN OPENING NOTE Patient is in bed, A&O x 2, moans upon tactile and verbal stimulation. Breathing even and non-labored on 3 L via nasal cannula, no SOB noted. No respiratory or cardiac distress noted. On tele monitor, reading SR 68. IV access noted on R wrist #22g, patent and intact, and flushing well. Bilateral soft wrist restraints in place, circulation, skin, and sensation of both upper extremities are intact. Bed locked to its lowest position, side rails x 2 up, bed alarm on. Will continue with current medical management.
[2020-09-30] MEDS: PANTOPRAZOLE 40 MG TABLET.DR PO SCH (08:27)
[2020-09-30] MEDS: DEXAMETHASONE SOD PHOSPHATE 10 MG/ML VIAL IV SCH (08:29)
[2020-09-30] MEDS: APIXABAN 5 MG TABLET PO SCH (08:30)
[2020-09-30] MEDS: ATORVASTATIN 40 MG TABLET PO SCH (08:41)
[2020-09-30] MEDS: ESCITALOPRAM OXALATE (10 MG) 10 MG TABLET PO SCH (08:41)
[2020-09-30 08:42] VITALS: BP 125/70
[2020-09-30] MEDS: LISINOPRIL (20MG) 20 MG TABLET PO SCH (08:42)
[2020-09-30] MEDS: HYDROCHLOROTHIAZIDE 25 MG TABLET PO SCH (08:42)
[2020-09-30] MEDS ORDERED: METF-440 PO (09:52)
[2020-09-30] MEDS ORDERED: ALBU18HF2 INH (09:52)
[2020-09-30] MEDS ORDERED: LEVO500T90 PO (09:52)
[2020-09-30] MEDS ORDERED: HYDR25TA4 PO (09:52)
[2020-09-30] MEDS ORDERED: APIX5TAB PO (09:52)
[2020-09-30] MEDS ORDERED: METH4TAB17 PO (09:52)
--- NOTE | 2020-09-30 10:49 | NUR ---
TELE/RN NOTE REACHED OUT TO JAQUELINE (PATIENT'S SON) AND TREVOR (BUTTON MAKER AND INSTALLER OF THE FACILITY SHE LIVES IN) ON WHETHER SHE HAS TAKEN THE FLU AND PNEUMOCOCCAL VACCINE. PER JAQUELINE AND TREVOR, PATIENT HAS NOT BEEN GIVEN THE VACCINE. JAQUELINE WANTS PATIENT TO TAKE BOTH VACCINES. NOTED AND WILL ADMINISTER BEFORE DISCHARGE.
[2020-09-30] MEDS ORDERED: INFLUENZA VACCINE 2020-21 0.5 ML DISP.SYRIN IM ONE (11:00)
[2020-09-30] MEDS ORDERED: PNEUMOCOCCAL 23-VAL P-SAC VAC 0.5 ML VIAL SQ ONE (11:00)
--- NOTE | 2020-09-30 16:00 | NUR ---
TELE/SILVER SERVICE WAITER NOTES Patient remained stable throughout shift. VSS, afebrile, no SOB noted. All needs met and attended to. Denies any s/s of pain/discomfort throughout shift. Breathing even and non-labored on 2L oxygen via NC. No respiratory or cardiac distress noted. IV access on R wrist #22g removed with catheter intact, placed pressure and clean, dry, dressing in place with tape. No s/s of bleeding, infiltration, or infection noted on site. No new skin impairments noted. Sensation from all peripheral extremities intact. Educated patient and Tari (facility's administration) on discharge instructions and covid isolation precautions, answered all questions to satisfaction. Tari verbalized understanding. Patient left facility safely with all belongings and hospitalization documents in hand.
== END 2020-09-30 16:00 | disposition hospice, inpatient (51) | DRG 871 ==
LOC: ER 14:30 → TRANSITION 17:32 → TELE2 20:40 → MEDSG2 09-30 12:05
PROVIDERS: ATTEND Nurse Practitioner Acute Care
PROC: XW033E5 Introduction of Remdesivir Anti-infective into Peripheral Vein, Percutaneous Approach, New Technology Group 5 (ICD-10-PCS; 2020-09-23)
PROC: XW13325 Transfusion of Convalescent Plasma (Nonautologous) into Peripheral Vein, Percutaneous Approach, New Technology Group 5 (ICD-10-PCS; principal; 2020-09-24)
DX: A41.89 Other specified sepsis (principal); U07.1 COVID-19; J96.01 Acute respiratory failure with hypoxia; J15.9 Unspecified bacterial pneumonia; J12.82 Pneumonia due to coronavirus disease 2019; E44.0 Moderate protein-calorie malnutrition; E11.9 Type 2 diabetes mellitus without complications; I25.10 Atherosclerotic heart disease of native coronary artery without angina pectoris; F20.9 Schizophrenia, unspecified; D69.6 Thrombocytopenia, unspecified; F29 Unspecified psychosis not due to a substance or known physiological condition; M81.0 Age-related osteoporosis without current pathological fracture; E78.5 Hyperlipidemia, unspecified; F32.9 Major depressive disorder, single episode, unspecified; I50.9 Heart failure, unspecified; I11.0 Hypertensive heart disease with heart failure; D64.9 Anemia, unspecified; Y95 Nosocomial condition; A41.1 Sepsis due to other specified staphylococcus
CPT/HCPCS: 36415; 36600; 71045-TC; 80048-TC; 80053-TC; 80061-TC; 80076-TC; 80202-TC; 81001; 82550-TC; 82553; 82728-TC; 82803-TC; 82962-TC; 83605-TC; 83615-TC; 83735-TC; 83880; 84100-TC; 84443-TC; 84484-TC; 85025-TC; 85378-TC; 85610-TC; 85730-TC; 86140-TC; 86480; 86803; 86850-TC; 87040-TC; 87081-TC; 87086-TC; 87536; 87899; 90732; 92526; 92611-TC; 93308-TC; 94760-TC; 94799-TC; 99082-TC; A4216; A4217; C9803; G0378; J0692; J0696; J1100; J1815; J3370; J3475; J7030; J7040; J7050; J7060; P9017-BL; Q2036